=== PATIENT | female | born 1980 | race Caucasian/White ===

== ENCOUNTER 2022-08-07 19:28 | Emergency (ER) | payer OTHER ==
[~2022-08-07] VITALS: Ht 175.3 cm; Wt 80.0 kg
[2022-08-07 19:46] VITALS: BP 181/69
[2022-08-07] MEDS ORDERED: ketorolac trometh inj. 60 MG/2 ML VIAL IM ONE (20:35)
[2022-08-07] MEDS ORDERED: ketorolac trometh. 30mg/ml inj. IM ONE (20:35)
[2022-08-07] MEDS ORDERED: HYDR-3965 PO (21:33)
== END 2022-08-07 21:45 | disposition home or self-care (01) ==
LOC: ER 19:30
DX: R10.31 Right lower quadrant pain (principal); M25.551 Pain in right hip; Z79.899 Other long term (current) drug therapy; V87.7XXA Person injured in collision between other specified motor vehicles (traffic), initial encounter; Y93.89 Activity, other specified; Y92.488 Other paved roadways as the place of occurrence of the external cause; Y99.8 Other external cause status
CPT/HCPCS: 74176; 96372; 99285; J1885